=== PATIENT | female | born 2005 | race Caucasian/White ===

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

== ENCOUNTER 2023-01-02 18:28 | Emergency (ER) | payer OTHER, SELFPAY ==
[2023-01-02 18:32] VITALS: BP 126/84; PULSE 119; RESP 20; TEMP 36.8; O2SAT 100
[2023-01-02 18:43] VITALS: BP 126/84; PULSE 119; RESP 20; TEMP 36.8; O2SAT 100
--- NOTE | 2023-01-02 19:05 | ED.NAVMDI ---
HPI - Nausea/Vomiting/Diarrhea General Chief complaint: Nausea/Vomiting/Diarrhea Stated complaint: Abdominal Pain Time Seen by Provider: 01/02/23 19:05 Source: patient and RN notes reviewed Mode of arrival: ambulatory Limitations: no limitations History of Present Illness HPI Narrative: 17-year-old female presents with concern of for abdominal pain and diarrhea. Reports this morning she developed abdominal pain that she reports is 8/10 and comes in waves. She reports that can wrap around to her back at times. She reports she has diarrhea. She reports there is no relieving or exacerbating factors for the abdominal pain. She reports that makes her nauseated but she has not vomited. She reports her menstrual period was about 2 weeks ago and was normal. She denies dysuria, frequency, urgency MD elicited complaint: nausea and diarrhea Related Data Allergies Allergy/AdvReac Type Severity Reaction Status Date / Time guaifenesin [From Robitussin] AdvReac Unknown Verified 01/02/23 18:41 Review of Systems Review of Systems: CONSTITUTIONAL: Reports malaise. Denies chills, sweats, or fever. ENT: Denies rhinorrhea, congestion, sinus pain, otalgia or sore throat. CARDIOVASCULAR: Denies chest pain, palpitations, or edema. RESPIRATORY: Denies cough or dyspnea. GASTROINTESTINAL: Reports abdominal pain, nausea, diarrhea. Denies vomiting GENITOURINARY: Denies dysuria or hematuria. MUSCULOSKELETAL: Denies myalgia. NEUROLOGIC: Denies headache. All systems reviewed & are unremarkable except as noted in HPI and below PMFSH Family History Family History Father Hypertension Mother Asthma Diabetes mellitus Hypertension Depression Sibling Asthma Depression Disorder of thyroid Grandparent History of ETOH abuse Diabetes mellitus Heart disease Depression Grandparent Diabetes mellitus Heart disease Depression Hypertension Social History Social History Smoking status: Current every day smoker Tobacco type: e-cigarettes/vaping Lack of Transportation: No Lack of Food: Never True Current Housing: I Have Housing Concerned About Future Housing: No Difficulty Paying Gas/Electric Bills: No Difficulty Paying for Meds: No Currently Unemployed: No Education: High School Diploma/GED Difficulty w/ Childcare or Family Care: No Comments At time of signature, agree with nursing past medical, surgical, social and family history. There is no relevant family history pertinent to the presenting complaint Exam Narrative: GENERAL: Nontoxic-appearing and in no acute distress. Appears to be in pain HEAD: Normocephalic, atraumatic. EYES: PERRLA, conjunctivae clear ENT: Nares clear. Mucous membranes moist. NECK: Supple. No lymphadenopathy CHEST: Speaks in full sentences. No respiratory distress. HEART: Regular rate and rhythm. SKIN: Warm, dry, no rash. NEURO: Alert and oriented x3. PSYCH: Tearful Course Course Emergency Course: Patient is aware of, understands and agrees to be transferred to the emergency room. Patient agrees to proceed directly to the emergency department. Portions of this record may have been created with voice recognition software Level of Care: Express Care Visit Vital Signs Vital signs: Vital Signs Temperature 98.2 F 01/02/23 18:32 Pulse Rate 119 H 01/02/23 18:32 Respiratory Rate 20 01/02/23 18:32 Blood Pressure 126/84 01/02/23 18:32 Pulse Oximetry 100 01/02/23 18:32 Oxygen Delivery Room Air 01/02/23 18:32 Temperature 98.2 F 01/02/23 18:43 Pulse Rate 119 H 01/02/23 18:43 Respiratory Rate 20 01/02/23 18:43 Blood Pressure 126/84 01/02/23 18:43 Pulse Oximetry 100 01/02/23 18:43 Oxygen Delivery Room Air 01/02/23 18:43 Reviewed. Transfer Transfered to: [facility]) Transportation: Other (Pr
== END 2023-01-02 19:14 | disposition short-term general hospital (02) ==
PROVIDERS: Emergency Provider Nurse Practitioner; PCP Family Medicine
DX: R10.9 Unspecified abdominal pain (principal); F17.290 Nicotine dependence, other tobacco product, uncomplicated
CPT/HCPCS: 99212; G0463

== ENCOUNTER 2023-11-16 09:26 | Outpatient (CLI) | payer OTHER, SELFPAY ==
[2023-11-16 20:29] LABS: Hemoglobin A1C 5.4 % (<5.7)
[2023-11-16 22:48] LABS: Alanine Aminotransferase 18 U/L (6-35); Albumin Level 4.3 g/dL (3.5-5.1); Alkaline Phosphatase 53 U/L (38-126); Anion Gap 7 mmol/L (4-12); Aspartate Amino Transferase 46 U/L (14-36); Bilirubin,Total 0.4 mg/dL (0.2-1.3); Blood Urea Nitrogen 12 mg/dL (7-17); Calcium 9.2 mg/dL (8.4-10.2); Carbon Dioxide 25 mmol/L (22-30); Chloride 104 mmol/L (98-107); Cholesterol 193 mg/dL (0-200); Estimated Glomerular Filt Rate > 60; Glucose 83 mg/dL (65-110); HDL Direct 36 mg/dL; Potassium 4.7 mmol/L (3.4-5.0); Sodium 136 mmol/L (137-145); Triglycerides 232 mg/dL (<150)
[2023-11-16 22:59] LABS: LDL Cholesterol Direct 97 mg/dL
== END 2023-11-16 09:27 | disposition home or self-care (01) ==
PROVIDERS: PCP Nurse Practitioner Adult Health; Visit Provider Nurse Practitioner Adult Health
DX: R73.9 Hyperglycemia, unspecified (principal); Z13.9 Encounter for screening, unspecified
CPT/HCPCS: 36415; 80053; 80061; 83036

== ENCOUNTER 2024-09-04 13:53 | Outpatient (CLI) | payer OTHER, SELFPAY ==
--- OUTSIDE RECORDS SUMMARY | 2024-09-04 14:07 | XMS_ITS | Clinical Summary ---
Author Organization [facility] Address [address] [place] [address] Care Team Providers Care Coil Cleaner Name Role Phone Anaya Chadwick MD Primary Care Provider [phone] Source Comments [facility],non-owned Affiliates and Associated Physician Practices is amultiple site organization consisting of ambulatory clinics and hospital sitesin [place], [place], [place] and [place]. This disclosure is being madepursuant to the Care Everywhere program and may not contain all information available regarding this patient. Last updated 17.[facility] Allergies No known active allergies Medications * Be aware that medications may not be up to date on this document. Alwaysverify current medications with the patient. ondansetron (ZOFRAN) 4 MG tablet Take 1 tablet by mouth every 6 hours as needed for Nausea/Vomiting 30 tablet 9 Active acetaminophen (TYLENOL) 325 MG tablet Take 2 tablets by mouth every 4 hours as needed Maximum allowable Acetaminophen amount = 4 Grams (4000 mg) / 24 hours. 9 Active albuterol HFA (PROVENTIL;AKSHAT TOLIN;PROAIR) 108 (90 Base) MCG/ACT inhaler Inhale 2 puffs by mouth Active etonogestrel-e thinyl estradiol (NUVARING) 0.12-0.015 MG/24HR vaginal ring INSERT 1 RING VAGINALLY. LEAVE IN PLACE FOR 21 DAYS, THEN REMOVE. LEAVE OUT FOR 7 DAYS BEFORE REPEAT 1 Active ELURYNG 0.12-0.015 MG/24HR vaginal ring 1 Active ketoconazole (NIZORAL) 2 % shampoo LATHER AFFECTED AREAS, LEAVE IN PLACE FOR 5 MINUTES, AND THEN RINSE OFF WITH WATER 3 TIMES A WEEK. 1 Active Active Problems Problem Noted Date Diagnosed Date Lower abdominal pain 01/20/2019 Assessment & Plan (01/21/2019 12:18 PM RIVET TESTER): Assessment: Sangita has had abdominal pain for 6 days. Pain related as episodic and sharp and 10/10. Worsened with movement. Pt with no pain on abdominal exam, tolerating PO well and has been afebrile. Has history of IBS and would most likely attribute this pain to IBS or potentially exacerbation of functional abdominal pain. Mother quite concerned about ovarian etiology, given history of irregular and painful menses. Abd obstructive series does not indicate free air or obstruction. Plan: - Pelvic ultrasound of ovaries with doppler - Maintenance IV fluids, 100ml/hr - Clear liquid diet - Pain control - Tylenol PRN mild pain - Toradol PRN moderate-severe pain - Continue home PRN hyoscyamine - IV Nexium 40 mg qday - VS q8h - Strict I/Os Assessment & Plan (01/20/2019 10:56 PM RIVET TESTER): Assessment: Sangita has abdominal pain for 6 days. Pain in setting of vomiting and diarrhea assoicated with viral gastroentertis vs post viral ilues vs mesenteric adenitis. Patient does not have an acute abdomen. Description and exam not consistent with appendiciits or ovarian torsion. Requires admit for pain control and monitoring. Plan: - Admit to general medicine, Dr. Ruelas - maintenance IV fluids - clear liquid diet - pain control - Tylenol PRN mild pain - Toradol PRN moderate-severe pain - continue home PRN hyoscyamine - IV Nexium 40 mg qday - Urine GC/Chlamydia - VS q8h - Strict I/Os - Would consider further imaging if new concerns arise on exam Lower abdominal pain 08/09/2017 Resolved Problems Problem Noted Date Diagnosed Date Resolved Date Gastroenteritis 01/21/2019 02/04/2019 Assessment & Plan (01/21/2019 12:21 PM RIVET TESTER): Assessment: Sangita with vomiting and diarrhea, though mother and child believe this to be due to pain and IBS. Still would be concerned about infectious gastroenteritis. No blood noted, no tenesmus noted. Plan: - if stool becomes bloody would consider stool culture. - monitor PO intake and amount of output Diarrhea 08/09/2017 09/06/2017 Immunizations Immunization Administration Dates Next Due INFLUENZA VACCINE, QUADR. (F LUZONE; FLULAVAL; FLUARIX; AFLURIA QUADRIVALENT; 6MO+), 0.5 ML (IIV4) 12/24/2020 Family History Medical History Relation Name Comments Other - Gastrointestinal Mother IBS ; lactose intolerance Celiac Disease Neg Hx Crohn's Disease Neg Hx Ulcerative Colitis Neg Hx Relation Name Status Comments Mother Social History Tobacco Use Types Packs/Day Years Used Date Smoking Tobacco: Never Smokeless Tobacco: Never Alcohol Use Standard Drinks/Week Comments Never 0 (1 standard drink = 0.6 oz pur e alcohol) AUDIT-C Answer Date Recorded Frequency of Alcohol Consumption Never 01/20/2019 Average Number of Drinks Not on file 019 Frequency of Binge Drinking Not on file 01/06 Comments No Sex and Gender Information Value Date Recorded Sex Assigned at Not on file Legal Sex Female 5:45 AM RIVET TESTER Gender Identity Not on file Sexual Orientation Not on file Last Filed Vital Signs Vital Sign Reading Time Taken Comments Blood Pressure 116/68 12/24/2020 8:44 AM RIVET TESTER Pulse 63 01/21/2019 9:41 AM RIVET TESTER Temperature 36.4 C (97.6 F) 01/21/2019 9:41 AM RIVET TESTER Respiratory Rate 20 01/21/2019 9:41 AM RIVET TESTER Oxygen Saturation 98% 01/21/2019 9:41 AM RIVET TESTER Inhaled Oxygen Concentration - - Weight 63.8 kg (140 lb 10.5 oz) 12/24/2020 8:44 AM RIVET TESTER Height 167.3 cm (5' 5.87) 12/24/2020 8:44 AM CS T Body Mass Index 22.79 12/24/2020 8:44 AM RIVET TESTER Plan of Treatment Health Maintenance Due Date Last Done Comments HIV SCREENING 06/08/2018 HPV VACCINE (1 - 3-dose series) 06/08/2018 CHLAMYDIA/GONORRHEA SCREENING 2019 MENINGOCOCCAL (Group B) VACC INE SHARED DECISION-MAKING (1 of 2 - Standard) 2019 HEPATITIS C SCREENING 06/04/2021 DTAP/TDAP/TD VACCINES (1 - Tdap) 06/08/2022 HEPATITIS B VACCINE (1 of 3 - 19+ 3-dose series) 06/08/2022 COVID-19 VACCINE (1 - 2023-2 5 season) 2023 DEPRESSION SCREENING 02/07/2024 INFLUENZA VACCINE (#1) 2024 12/24/2020 ZOSTER VACCINE (1 of 2) 06/08/2053 HIB VACCINE Aged Out No longer eligi ble based on patient's age to complete this topic MENINGOCOCCAL GROUPS A/C/Y/W VACCINE Aged Out No longer eligible b ased on patient's age to complete this topic PNEUMOCOCCAL VACCINE Aged Out No long er eligible based on patient's age to complete this topic Insurance [employer] A[employer]NA Advance Directives * Full Code (Latest Code Status on File) Date Activated Date Inactivated Comments 01/20/2019 10:50 PM 01/21/2019 7:18 PM Care Teams Coil Cleaner Relationship Specialty Start Date End Date Anaya Chadwick MD [address] [place] [address] PCP - General Pediatrics 08/11/17
--- OUTSIDE RECORDS SUMMARY | 2024-09-04 14:07 | XMS_ITS | Clinical Summary ---
Author Organization [facility] Address [address] [place] [address] Phone Care Team Providers Care Gravel Screener Name Role Phone Yoel Dawkins MD Primary Care Provider Medications dicyclomine (BENTYL) 20 MG Tablet Take 1 Tablet by mouth every 6 hours. For abdominal cramps 30 Tablet Active Social History Tobacco Use Types Packs/Day Years Used Date Smoking Tobacco: Never Smokeless Tobacco: Never Tobacco Cessation:Counseling Given: Not Answered Alcohol Use Standard Drinks/Week Comments Yes 0 (1 standard drink = 0.6 oz pur e alcohol) socially Comments Unknown Sex and Gender Information Value Date Recorded Sex Assigned at Female 01/02/2023 9:07 PM MASTER CHEF Legal Sex Female 9:26 AM MASTER CHEF Gender Identity Female 01/02/2023 9:07 PM MASTER CHEF Sexual Orientation Not on file Last Filed Vital Signs Vital Sign Reading Time Taken Comments Blood Pressure 103/59 01/03/2023 1:15 AM MASTER CHEF Pulse 86 01/03/2023 1:15 AM MASTER CHEF Temperature 36.9 C (98.5 F) 01/02/2023 7:43 PM MASTER CHEF Respiratory Rate 18 01/03/2023 12:00 AM MASTER CHEF Oxygen Saturation 97% 01/03/2023 1:15 AM MASTER CHEF Inhaled Oxygen Concentration - - Weight 70.3 kg (155 lb) 01/02/2023 7:43 PM MASTER CHEF Height 167.6 cm (5' 6) 01/02/2023 7:43 PM MASTER CHEF Body Mass Index 25.02 01/02/2023 7:43 PM MASTER CHEF Plan of Treatment Health Maintenance Due Date Last Done Comments Hepatitis C Virus (HCV) Screening 2003 SARS-COV-2 Immunization ( season) 2023 Pap Smear 06/08/2024 Influenza Immunization (#1) 10/07/202412/07, 12/26/2018, 01/17/2018, Additional history exists Respiratory Syncytial Virus (RSV) Immunization (Adult) (1 - 1-dose 75+ series) 06/08/2078 Hepatitis B Immunization Completed 004, 2003, 2003 Pneumococcal Immunization Combined Aged Out 09/24/2004, 2003, 2003, Additional history exists No longer eligible based on patient's age to complete this topic Hepatitis A Immunization Discontinued 02/24/2006, 06/2005 Measles Mumps Rubella (MMR) Immunization Discontinued 06/11/2007, 2004 Varicella Immunization Discontinued 06/11/2007, 2004 Polio (IPV) Immunization Discontinued 009, 03/12/2004, 2003, Additional history exists DTaP/Tdap/Td Immunization Discontinued 2013, 08/14/2008, 09/24/2004, Additional history exists TdaP Immunization Completed 06/12/2013 Human Papillomavirus (HPV) Immunization Completed 03/02/2017, 08/29/2016 Meningococcal Immunization (ACWY) Completed 07/30/2019, 07/08/2014 Meningococcal B Immunization Completed 07/27/2020, 07/30/2019 Rotavirus Immunization Aged Out No lo nger eligible based on patient's age to complete this topic Care Teams Gravel Screener Relationship Specialty Start Date End Date Yoel Dawkins MD [address] [place] [id number] PCP - General Pediatrics 12/16/19
--- OUTSIDE RECORDS SUMMARY | 2024-09-04 14:07 | XMS_ITS | Clinical Summary ---
Author Organization [facility] Address [address] Attn: Epic Prelude ADT [place] [address] Care Team Providers Care Radio Interference Expert Name Role Phone Unavailable Primary Care Provider Unavailabl e Social History Tobacco Use Types Packs/Day Years Used Date Smoking Tobacco: Never Assessed Comments Unknown Sex and Gender Information Value Date Recorded Sex Assigned at Not on file Legal Sex Female 2:57 AM ASIAN STUDIES PROGRAM CHAIR Gender Identity Not on file Sexual Orientation Not on file Plan of Treatment Health Maintenance Due Date Last Done Comments CHLAMYDIA SCREENING (ANNUAL) 11-24 YEARS 06/08/2014 HPV VACCINES (1 - 3-dose series) 06/08/2018 DTAP/TDAP/TD VACCINES (1 - Tdap) 06/08/2022 HEPATITIS B VACCINES (1 of 3 - 19+ 3-dose series) 04/2022 CERVICAL CANCER SCREENING 06/08/2024 HPV/Cotest (21-29) 06/08/2024 PAP SMEAR 06/08/2024 INFLUENZA VACCINE (#1) 2024
--- OUTSIDE RECORDS SUMMARY | 2024-09-04 14:07 | XMS_ITS | Clinical Summary ---
Author Organization [facility] [place] 8 [facility] Address [address] [place] [id number] Care Team Providers Care Lawn Sprinkler Servicer Name Role Phone Sabrina Man NP Primary Care Provider [phone] Allergies No known active allergies Medications ibuprofen (ADVIL,MOTRIN) 200 mg tab/cap Take by mouth every 6 (six) hours as needed for pain Active etonogestreL-et hinyl estradioL (NUVARING, ELURYNG) 0.12-0.015 mg/24 hr vaginal ring INSERT 1 RING VAGINALLY. LEAVE IN PLACE FOR 21 DAYS, THEN REMOVE. LEAVE OUT FOR 7 DAYS BEFORE REPEAT 1 Active albuterol HFA (PROVENTIL HFA,VENTOLIN HFA,PROAIR HFA) 90 mcg/actuation inhaler Inhale 2 puffs every 6 (six) hours as needed for wheezing Active Vraylar 1.5 mg capsule capsule Take 1 capsule (1.5 mg total) by mouth daily 5 Active clotrimazole-be tamethasone (LOTRISONE) cream Apply topically 2 (two) times a day 5 Active promethazine-DM (PROMETHAZINE-D M) 1.25-3 mg/mL syrupIndication s:Allergic Rhinitis Take 5 mL by mouth 4 (four) times a day as needed for cough 120 mL Active Active Problems No known active problems Encounters Date Type Department Care Team Description 06/10/2024 12:15 PM CDT Office Visit [facility] at [address] [address] Kelli Zaragoza, KACY Viral sinusitis (Primary Dx) from Last 3 Months Medical History Medical History Date Comments Hx Other Medical forearm fractur e; Comments: CAN 11/19/2013 - Asthma Asthma Hx Other Medical T and A 2009 Family History Medical History Relation Name Comments Cancer Other 1 Family history of Cancer, unknown; Hypertension Other 2 Family history of Hypertension; Heart disease Other 3 Family history of Heart problems; Diabetes type II Other 4 Family hist ory of Diabetes mellitus type 2; Arthritis Other 5 Family history of Arthritis; Relation Name Status Comments Other 1 Other 2 Other 3 Other 4 Other 5 Social History Tobacco Use Types Packs/Day Years Used Date Smoking Tobacco: Never Smokeless Tobacco: Never Tobacco Cessation:Counseling Given: Yes Alcohol Use Standard Drinks/Week Comments No 0 (1 standard drink = 0.6 oz pur e alcohol) Comments No Sex and Gender Information Value Date Recorded Sex Assigned at Not on file 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 Gender Identity Not on file Sexual Orientation Not on file Obstetrics History Last Filed Vital Signs Vital Sign Reading Time Taken Comments Blood Pressure 104/70 06/10/2024 12:16 PM CDT Pulse 97 06/10/2024 12:16 PM CDT Temperature 36.9 C (98.5 F) 06/10/2024 12:16 PM CDT Respiratory Rate 15 06/10/2024 12:16 PM CDT Oxygen Saturation 99% 06/10/2024 12:16 PM CDT Inhaled Oxygen Concentration - - Weight 77.1 kg (170 lb) 06/10/2024 12:16 PM CDT Height 167.6 cm (5' 6) 06/10/2024 12:16 PM CDT Body Mass Index 27.44 06/10/2024 12:16 PM CDT Plan of Treatment Health Maintenance Due Date Last Done Comments Cervical Cancer Screening 2003 Depression Screening 2003 Hepatitis C Screening 2003 Regular Well Visit/Exam 18-64 06/08/2021 DTaP/Tdap/Td Vaccine (7 - Td or Tdap) 06/13/2023 06/12/2013, 08/14/2008, 09/24/2004, Additional history exists Influenza Vaccine (#1) 2024 , 12/26/2018, 01/17/2018, Additional history exists Hepatitis B Screening Completed 2003 , 2003, 2003 Pneumococcal vaccine <65 Completed 005, 2003, 2003, Additional history exists Varicella Vaccines Completed 06/11/2007, 2004 HPV Vaccines Completed 03/02/2017, 08/29/2016 Meningococcal Vaccine Completed 07/30/2019, 015 Meningococcal B Vaccine Completed 07/27/2020, 07/29 Insurance [id number] [place] [address] [place] [id number] [facility] Care Teams Lawn Sprinkler Servicer Relationship Specialty Start Date End Date Sabrina Man NP [address] [place] [id number] PCP - General Nurse Practitioner 06/10/24
--- OUTSIDE RECORDS SUMMARY | 2024-09-04 14:07 | XMS_ITS | Encounter Summary ---
Author Organization [facility] Address 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
--- OUTSIDE RECORDS SUMMARY | 2024-09-04 14:07 | XMS_ITS | Encounter Summary ---
Author Organization [facility] Address [address] [place] [address] Care Team Providers Care Power Plant Operations Manager Name Role Phone Unavailable Primary Care Provider Unavailabl e Encounter Details Date Type Department Care Team (Late st Contact Info) Description 09/05/2005 Outpatient Historical [facility] [address] [facility] [address] [address] Dave Quesada MD [address] 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
--- OUTSIDE RECORDS SUMMARY | 2024-09-04 14:07 | XMS_ITS | Referral Summary ---
Author Organization [address] Address [address] [place] [address] Care Team Providers Care Drupal Web Developer Name Role Phone Sabrina Man NP Primary Care Provider [phone] Encounters Date Type Department Care Team Description 06/10/2024 12:15 PM CDT Office Visit [facility] at [address] [address] Kelli Zaragoza, KACY Viral sinusitis (Primary Dx) from Last 3 Months Allergies No known active allergies Medications ibuprofen [...] day as needed for cough 120 mL 5 Active Active Problems No known active problems Social History Tobacco Use Types Packs/Day Years Used Date Smoking Tobacco: Never Smokeless Tobacco: Never Tobacco Cessation:Counseling Given: Yes Alcohol Use Standard Drinks/Week Comments No 0 (1 standard drink = 0.6 oz pur e alcohol) Comments No Sex and Gender Information Value Date Recorded Sex Assigned at Not on file 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
--- OUTSIDE RECORDS SUMMARY | 2024-09-04 14:07 | XMS_ITS | Encounter Summary ---
Author Organization [facility] Address [address] [facility] 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 Legal Sex Female 9:26 AM ELECTROMYOGRAPHIC TECHNICIAN Gender Identity Female 01/02/2023 9:07 PM ELECTROMYOGRAPHIC TECHNICIAN Sexual Orientation Not on file documented as of this encounter Plan of Treatment Not on file documented as of this encounter Visit Diagnoses Not on filedocumented in this encounter Additional Health Concerns Infection Onset Date Last Indicated Resolved Time COVID - 19 05/04/2020 05/04/2020 05/06/2020 3:58 PM CDT documented as of this encounter Care Teams Overlock Waistline Joiner Relationship Specialty Start Date End Date Yoel Dawkins MD [address] [place] [address] PCP - General Pediatrics 12/16/19 documented as of this encounter
[2024-09-04 20:26] LABS: Beta HCG Quantitative 269.76 mIU/ML
== END 2024-09-04 13:54 | disposition home or self-care (01) ==
PROVIDERS: PCP Nurse Practitioner Adult Health; Visit Provider Nurse Practitioner Adult Health
DX: Z32.01 Encounter for pregnancy test, result positive (principal)
CPT/HCPCS: 36415; 84702